=== PATIENT | female | born 1945 | race Caucasian/White ===

== ENCOUNTER 2018-06-23 | Observation (INO) | payer MEDICARE, OTHER ==
[2018-06-23] VITALS (9 sets, daily range): BP systolic 132–148; BP diastolic 61–68; PULSE 71–84; RESP 19; Ht 149.9 cm; Wt 67.4 kg
[~2018-06-23] VITALS: Ht 149.9 cm; Wt 67.4 kg
[~2018-06-23] MED LIST: CIPR500T4 PO; LEVO100T82 PO; LIRA0.6P SQ; METF500T24 PO
[2018-06-23] MEDS ORDERED: NITROGLYCERIN 2% 1 GM OINT PKT TD STA (02:51)
[2018-06-23] MEDS ORDERED: ASPIRIN 325 MG TAB PO STA (02:51)
--- NOTE | 2018-06-23 02:54 | ERD ---
ER Documentation Chief Complaint Chief Complaint chest pain x 3 days HPI This is a 73-year-old female with a history of hypertension, diabetes, high cholesterol who is here with 3 days of chest pain described as a severe deep chest pain with diaphoresis but no shortness of breath that occurs when she exerts herself. She has no prior history of cardiac disease and says this is getting worse. She has no pain currently. No prior cardiac workup. The patient is Iranian and is having this translated with her who speaks Ru ssian and Lao ROS All systems reviewed and are negative except as per history of present illness. Medications Home Meds Active Scripts Ciprofloxacin Hcl* (Ciprofloxacin Hcl*) 500 Mg Tablet, 500 MG PO BID for 7 Days, TAB Prov:GARDENIA MICHELLE MD 08/10/15 Reported Medications Levothyroxine Sodium* (Levoxyl*) 100 Mcg Tablet, 100 MCG PO BEFORE BREAKFAST, #30 TAB 08/10/15 Liraglutide (Victoza 2-Gokul) 0.6 Mg/0.1 Ml Pen.injctr, 1.2 MG SQ DAILY, SYR 08/10/15 Metformin Hcl* (Metformin Hcl*) 500 Mg Tablet, 500 MG PO TID, #30 TAB 08/10/15 Allergies Allergies: Coded Allergies: No Known Allergy (Unverified , 06/23/18) PMhx/Soc Hx Cardiac Disorders: Yes (HTN ) Hx Miscellaneous Medical Probl: Yes (DM) Hx Alcohol Use: No Hx Substance Use: No Hx Tobacco Use: No FmHx Family History: No coronary disease Physical Exam Vitals Vital Signs Date Temp Pulse Resp B/P (MAP) Pulse Ox O2 O2 Flow FiO2 Time Delivery Rate 06/23/18 74 25 159/58 99 Room Air 02:35 (91) 06/23/18 98.7 83 18 200/79 99 00:28 (119) Physical Exam Const: Well-developed, well-nourished Head: Atraumatic, normocephalic Eyes: Normal Conjunctiva, PERRLA, EOMI, normal sclera, no nystagmus ENT: Normal External Ears, Nose and Mouth, moist mucus membranes. Neck: Full range of motion. No meningismus, no lymphadenopathy. Resp: Clear to auscultation bilaterally, no wheezing, rhonchi, rales Cardio: Regular rate and rhythm, no murmurs, S1 S2 present Abd: Soft, non tender x 4, non distended. Normal bowel sounds, no guarding or rebound, no pulsitile abdominal masses or bruits Skin: No petechiae or rashes, no ecchymosis , no maculopapular rash Back: No midline or flank tenderness Ext: No cyanosis, or edema, FROM x 4, normal inspection, neurovascularly intact x 4 Neur: Awake and alert, STR 5/5 x 4, sensation intact x 4, no focal findings, cerebellum intact Psych: Normal Mood and Affect Result Diagram: 06/23/185 06/23/18254 Results 24 hrs Laboratory Tests Test 06/23/18 02:55 06/23/18 03:08 White Blood Count 8.0 10^3/ul Red Blood Count 4.89 10^6/ul Hemoglobin 14.1 g/dl Hematocrit 42.5 % Mean Corpuscular Volume 86.9 fl Mean Corpuscular Hemoglobin 28.8 pg Mean Corpuscular Hemoglobin Concent 33.2 g/dl Red Cell Distribution Width 13.8 % Platelet Count 257 10^3/UL Mean Platelet Volume 10.1 fl Immature Granulocytes % 0.500 % Neutrophils % 60.9 % Lymphocytes % 27.2 % Monocytes % 7.2 % Eosinophils % 3.6 % Basophils % 0.6 % Nucleated Red Blood Cells % 0.0 /100WBC Immature Granulocytes # 0.040 10^3/ul Neutrophils # 4.9 10^3/ul Lymphocytes # 2.2 10^3/ul Monocytes # 0.6 10^3/ul Eosinophils # 0.3 10^3/ul Basophils # 0.1 10^3/ul Nucleated Red Blood Cells # 0.0 10^3/ul Sodium Level 141 mmol/L Potassium Level 4.0 mmol/L Chloride Level 105 mmol/L Carbon Dioxide Level 27 mmol/L Anion Gap 9 Blood Urea Nitrogen 24 mg/dl Creatinine 0.64 mg/dl Est Glomerular Filtrat Rate mL/min mL/min Glucose Level 132 mg/dl Calcium Level 9.5 mg/dl Total Bilirubin 0.4 mg/dl Direct Bilirubin 0.00 mg/dl Indirect Bilirubin 0.4 mg/dl Aspartate Amino Transf (AST/SGOT) 21 IU/L Alanine Aminotransferase (ALT/SGPT) 23 IU/L Alkaline Phosphatase 90 IU/L Troponin I < 0.012 ng/ml Total Protein 7.3 g/dl Albumin 4.4 g/dl Globulin 2.90 g/dl Albumin/Globulin Ratio 1.51 Bedside Glucose 118 mg/dL Current Medications Medications Dose Sig/João Start Time Status Last (Trade) Ordered Route PRN Stop Time Admin Dose Reason Admin Aspirin 325 mg ONCE STAT 06/23/18 DC 06/23/18 (Aspirin) PO 02:51 03:09 06/23/18 02:52 1 inch ONCE STAT 06/23/18 DC 06/23/18 Nitroglycerin TD 02:51 03:09 06/23/18 02:52 (Nitroglyceri n 2% Oint) Procedures/MDM EKG: Rate/Rhythm: Normal Sinus Rhythm,NL intervals QRS, ST, QT: NORMAL TX, QRS, QT] Impression: NORMAL EKG Cardiac Admit MDM: Patient's symptoms are concerning for cardiac cause will require inpatient workup and continuous monitoring. Further w/u for ischemia, arrhythmia, PE or dissection will be deferred to the inpatient team. Departure Diagnosis: Primary Impression: Chest pain Chest pain type: unspecified Qualified Codes: R07.9 - Chest pain, unspecified Condition: Stable MICHELLE FONTANA DO Jun 23, 2018 02:53
[2018-06-23] MEDS ORDERED: ACETAMINOPHEN 325 MG TAB PO PRN ×2 (04:30→07:00)
[2018-06-23] MEDS ORDERED: ONDANSETRON 4 MG INJ IV PRN ×2 (04:30→07:00)
[2018-06-23] MEDS ORDERED: LEVO75TA5 PO (05:43)
[2018-06-23] MEDS ORDERED: PANT40TA4 PO (05:43)
[2018-06-23] MEDS ORDERED: GLIM4TAB PO (05:43)
[2018-06-23] MEDS ORDERED: INSU100I31 SQ (05:43)
[2018-06-23] MEDS ORDERED: LIRA0.6P2 SQ (05:43)
[2018-06-23] MEDS ORDERED: IRBE1TAB33 PO (05:43)
[2018-06-23] MEDS ORDERED: OLOP2.5D5 OP (05:43)
--- NOTE | 2018-06-23 06:56 | HP ---
Date/Time of Note Date/Time of Note DATE: 06/23/18 TIME: 06:53 Assessment/Plan VTE Prophylaxis Pharmacological prophylaxis: heparin Lines/Catheters IV Catheter Type (from Nrsg): Saline Lock Assessment/Plan Assessment/Plan 1. Chest pain: Rule out ACS -Telemetry monitoring -Supplemental oxygen, aspirin, statin. Continue ARB. As needed nitro and morp johnson -Trend troponin -Manage BP -2D echo and cardiology consult -Check A1c, fasting lipid and TSH in a.m. 2. Hypertensive urgency: BP better controlled -Adjust antihypertensives as needed 3. Diabetes, insulin-dependent -Check A1c -Hold sulfonylurea. Continue insulin. Adjust as needed 4. Hypothyroidism: Check TSH -Continue Synthroid Result Diagram: 06/23/18 0255 06/23/18 0255 Results 24hrs Laboratory Tests Test 06/23/18 02:55 06/23/18 03:08 White Blood Count 8.0 Red Blood Count 4.89 Hemoglobin 14.1 Hematocrit 42.5 Mean Corpuscular Volume 86.9 Mean Corpuscular Hemoglobin 28.8 L Mean Corpuscular Hemoglobin Concent 33.2 Red Cell Distribution Width 13.8 Platelet Count 257 Mean Platelet Volume 10.1 Immature Granulocytes % 0.500 H Neutrophils % 60.9 Lymphocytes % 27.2 Monocytes % 7.2 Eosinophils % 3.6 Basophils % 0.6 Nucleated Red Blood Cells % 0.0 Immature Granulocytes # 0.040 H Neutrophils # 4.9 Lymphocytes # 2.2 Monocytes # 0.6 Eosinophils # 0.3 Basophils # 0.1 Nucleated Red Blood Cells # 0.0 Sodium Level 141 Potassium Level 4.0 Chloride Level 105 Carbon Dioxide Level 27 Anion Gap 9 Blood Urea Nitrogen 24 H Creatinine 0.64 Est Glomerular Filtrat Rate mL/min Glucose Level 132 Calcium Level 9.5 Total Bilirubin 0.4 Direct Bilirubin 0.00 Indirect Bilirubin 0.4 Aspartate Amino Transf (AST/SGOT) 21 Alanine Aminotransferase (ALT/SGPT) 23 Alkaline Phosphatase 90 Troponin I < 0.012 Total Protein 7.3 Albumin 4.4 Globulin 2.90 Albumin/Globulin Ratio 1.51 Bedside Glucose 118 HPI/ROS Admit Date/Time Admit Date/Time Jun 23, 2018 at 04:25 Hx of Present Illness This is a 73-year-old female with a history of hypertension, diabetes, hyp othyroidism who presents the ER complaining of chest pain. Pain is been going on for 3 days. She reported associated shortness of breath occasionally and also diaphoresis. When she presented to ER, blood pressure was 200/79. EKG without ST-T wave abnormalities in the first troponin negative. Chest x-ray without acute findings. PMH/Family/Social Past Medical History Past Surgical History Past Surgical Hx: other (see hpi) Family History Significant Family History: no pertinent family hx Social History Alcohol Use: other Smoking Status: Unknown if ever smoked Drug Use: other Exam Constitutional: other (no acute distress) Eyes: PERRL ENMT: nl external ears & nose Neck: supple Respiratory: normal air movement Cardiovascular: nl pulses Gastrointestinal: soft Extremities: normal pulses Medications Current Medications Ondansetron HCl (Zofran Inj) 4 mg ER BRIDGE PRN IV NAUSEA/VOMITING; Start 06/23/18 at 04:30; Stop 06/24/18 at 04:29 Acetaminophen (Tylenol Tab) 650 mg ER BRIDGE PRN PO .MILD PAIN 1-3 OR TEMP; Start 06/23/18 at 04:30; Stop 06/24/18 at 04:29 Coded Allergies: No Known Allergy (Unverified , 06/23/18) Social History Smoking Status: Never smoker Exam/Review of Systems Vital Signs Vitals Vital Signs Date Temp Pulse Resp B/P (MAP) Pulse Ox O2 O2 Flow FiO2 Time Delivery Rate 06/23/18 71 05:41 06/23/18 23 129/57 99 Room Air 05:23 (81) 06/23/18 98.7 00:28 AYESHA QUINN MD Jun 23, 2018 06:56
[2018-06-23] MEDS ORDERED: NITROGLYCERIN (SL) 0.4 MG TAB SL PRN (07:00)
[2018-06-23] MEDS ORDERED: NACL 0.9% 3 ML SYG IV SCH (07:00)
[2018-06-23] MEDS ORDERED: ALBUTEROL/IPRATROPIUM (NEB) 3 ML AMP HHN PRN (07:00)
[2018-06-23] MEDS: [UNRECOGNIZED DRUG - REMARK] XX SCH ×3 (08:00→23:17)
[2018-06-23] MEDS ORDERED: INSULIN DEGLUDEC 10 UNIT SQ SCH (09:00)
[2018-06-23] MEDS ORDERED: LIRAGLUTIDE 0.6 MG SQ SCH (09:00)
[2018-06-23] MEDS: LOSARTAN 50 MG TAB PO SCH (10:05)
[2018-06-23] MEDS: HYDROCHLOROTHIAZIDE 12.5 MG CAP PO SCH (10:05)
[2018-06-23] MEDS: HEPARIN 5,000 UNIT/1 ML VIAL SC SCH ×2 (10:05→20:53)
[2018-06-23] MEDS: PANTOPRAZOLE (EC) 40 MG TAB PO SCH (10:05)
[2018-06-23] MEDS: metFORMIN 500 MG TAB PO SCH ×3 (10:05→17:47)
[2018-06-23] MEDS: LEVOTHYROXINE 75 MCG TAB PO SCH (10:05)
--- NOTE | 2018-06-23 14:14 | PN ---
Date/Time of Note Date/Time of Note DATE: 06/23/18 TIME: 14:07 Assessment/Plan VTE Prophylaxis Pharmacological prophylaxis: heparin Lines/Catheters IV Catheter Type (from Nrsg): Saline Lock Assessment/Plan Assessment/Plan 1. Chest pain, negative troponin, follow up with echo and cardiology consultation 2. Hypertension, controlled 3. Diabetes, insulin-dependent, on metformin, victoza and insulin 4. Hypothyroidism, on Synthroid 5. DVT prophylaxsi: heparin SQ Result Diagram: 06/23/18 0255 06/23/18 0255 Results 24hrs Laboratory Tests Test 06/23/18 02:55 06/23/18 03:08 06/23/18 07:23 06/23/18 08:15 White Blood Count 8.0 Red Blood Count 4.89 Hemoglobin 14.1 Hematocrit 42.5 Mean Corpuscular 86.9 Volume Mean Corpuscular 28.8 L Hemoglobin Mean Corpuscular 33.2 Hemoglobin Concent Red Cell 13.8 Distribution Width Platelet Count 257 Mean Platelet Volume 10.1 Immature 0.500 H Granulocytes % Neutrophils % 60.9 Lymphocytes % 27.2 Monocytes % 7.2 Eosinophils % 3.6 Basophils % 0.6 Nucleated Red Blood 0.0 Cells % Immature 0.040 H Granulocytes # Neutrophils # 4.9 Lymphocytes # 2.2 Monocytes # 0.6 Eosinophils # 0.3 Basophils # 0.1 Nucleated Red Blood 0.0 Cells # Sodium Level 141 Potassium Level 4.0 Chloride Level 105 Carbon Dioxide Level 27 Anion Gap 9 Blood Urea Nitrogen 24 H Creatinine 0.64 Est Glomerular Filtrat Rate mL/min Glucose Level 132 Calcium Level 9.5 Total Bilirubin 0.4 Direct Bilirubin 0.00 Indirect Bilirubin 0.4 Aspartate Amino 21 Transf (AST/SGOT) Alanine 23 Aminotransferase (AL T/SGPT) Alkaline Phosphatase 90 Troponin I < 0.012 < 0.012 Total Protein 7.3 Albumin 4.4 Globulin 2.90 Albumin/Globulin 1.51 Ratio Bedside Glucose 118 158 Creatine Kinase 51 Creatine Kinase 2.5 Index Creatinine Kinase MB 1.26 (Mass) Test 06/23/18 12:59 Creatine Kinase 42 Creatine Kinase Pending Index Creatinine Kinase MB Pending (Mass) Troponin I < 0.012 Subjective 24 Hr Interval Summary Free Text/Dictation no chest pain now, no shortness of breath Exam/Review of Systems Exam Vitals Vital Signs Date Temp Pulse Resp B/P (MAP) Pulse Ox O2 O2 Flow FiO2 Time Delivery Rate 06/23/18 84 12:05 06/23/18 98.0 19 132/61 94 11:12 (84) 06/23/18 Room Air 05:23 Constitutional: alert, oriented, well developed Psych: no complaints, nl mood/affect Head: normocephalic, atraumatic Eyes: nl conjunctiva, EOMI, nl lids ENMT: nl external ears & nose, nl lips & teeth, nl nasal mucosa & septum Neck: supple, non-tender Respiratory: clear to auscultation, normal air movement; No congested cough, No crackles/rales, No diminished breath sounds, No intercostal retraction, No labored breathing, No respirations, No tactile fremitus, No wheezing, No other Cardiovascular: regular rate and rhythm, nl pulses; No bruits, No diastolic murmur, No edema, No gallop, No irregular rhythm, No jugular venous distention (JVD), No murmurs/extra sounds, No rub, No systolic murmur, No S3, No S4, No other Gastrointestinal: soft, nl liver, spleen, non-tender Musculoskeletal: nl extremities to inspection Extremities: normal pulses; No calf tenderness, No cyanosis, No clubbing, No edema, No pitting pedal edema, No palpable cord, No tenderness, No other Neurological: DISTANCE LEARNING PROGRAM COORDINATOR II-XII intact, nl mental status, nl speech, nl strength Skin: nl turgor Lymph: nl lymph nodes Results Results 24hrs Laboratory Tests Test 06/23/18 02:55 06/23/18 03:08 06/23/18 07:23 06/23/18 08:15 White Blood Count 8.0 Red Blood Count 4.89 Hemoglobin 14.1 Hematocrit 42.5 Mean Corpuscular 86.9 Volume Mean Corpuscular 28.8 L Hemoglobin Mean Corpuscular 33.2 Hemoglobin Concent Red Cell 13.8 Distribution Width Platelet Count 257 Mean Platelet Volume 10.1 Immature 0.500 H Granulocytes % Neutrophils % 60.9 Lymphocytes % 27.2 Monocytes % 7.2 Eosinophils % 3.6 Basophils % 0.6 Nucleated Red Blood 0.0 Cells % Immature 0.040 H Granulocytes # Neutrophils # 4.9 Lymphocytes # 2.2 Monocytes # 0.6 Eosinophils # 0.3 Basophils # 0.1 Nucleated Red Blood 0.0 Cells # Sodium Level 141 Potassium Level 4.0 Chloride Level 105 Carbon Dioxide Level 27 Anion Gap 9 Blood Urea Nitrogen 24 H Creatinine 0.64 Est Glomerular Filtrat Rate mL/min Glucose Level 132 Calcium Level 9.5 Total Bilirubin 0.4 Direct Bilirubin 0.00 Indirect Bilirubin 0.4 Aspartate Amino 21 Transf (AST/SGOT) Alanine 23 Aminotransferase (AL T/SGPT) Alkaline Phosphatase 90 Troponin I < 0.012 < 0.012 Total Protein 7.3 Albumin 4.4 Globulin 2.90 Albumin/Globulin 1.51 Ratio Bedside Glucose 118 158 Creatine Kinase 51 Creatine Kinase 2.5 Index Creatinine Kinase MB 1.26 (Mass) Test 06/23/18 12:59 Creatine Kinase 42 Creatine Kinase Pending Index Creatinine Kinase MB Pending (Mass) Troponin I < 0.012 Medications Medication Current Medications IV Flush (NS 3 ml) 3 ml PER PROTOCOL IV ; Start 06/23/18 at 07:00 Ondansetron HCl (Zofran Inj) 4 mg Q6H PRN IV NAUSEA/VOMITING; Start 06/23/18 at 07:00 Nitroglycerin (Nitroglycerin (Sl Tab) 0.4 Mg) 1 tab Q5M PRN SL .CHEST PAIN; Start 06/23/18 at 07:00 Acetaminophen (Tylenol Tab) 650 mg Q6H PRN PO .PAIN 1-3 OR TEMP; Start 06/23/18 at 07:00 Heparin Sodium (Porcine) (Heparin (5000 Units/1ml)) 5,000 unit Q12 SC Last administered on 06/23/18 10:05; Admin Dose 5,000 UNIT; Start 06/23/18 at 09:00 Albuterol/ Ipratropium (Duoneb) 3 ml Q2H RESP THERAPY PRN HHN SHORTNESS OF BREATH; Start 06/23/18 at 07:00 Levothyroxine Sodium (Synthroid) 75 mcg BEFORE BREAKFAST PO Last administered on 06/23/18 10:05; Admin Dose 75 MCG; Start 06/23/18 at 07:00 Metformin HCl (Glucophage) 500 mg WITH MEALS PO Last administered on 06/23/18 10:05; Admin Dose 500 MG; Start 06/23/18 at 08:00 Pantoprazole (Protonix Tab) 40 mg DAILY PO Last administered on 3/15/19at 10:05; Admin Dose 40 MG; Start 06/23/18 at 09:00 Miscellaneous Information 10 unit QAM SQ ; Start 06/23/18 at 09:00; Status UNV Losartan Potassium (Cozaar) 50 mg DAILY PO Last administered on 06/23/18at 10:05; Admin Dose 50 MG; Start 06/23/18 at 09:00 Miscellaneous Information 0.6 mg DAILY SQ ; Start 06/23/18 at 09:00; Status UNV Olopatadine HCl (Patanol 0.1% Oph) 1 drop QAM BOTH EYES ; Start 06/23/18 at 09:00 Hydrochlorothiazide (Hydrochlorothiazide) 12.5 mg DAILY PO Last administered on 06/23/18at 10:05; Admin Dose 12.5 MG; Start 06/23/18 at 09:00 Miscellaneous Information (*Order Clarification Bulletin) MEDICATION REQUIRES CLARIFICATI... Q8H XX ; Start 06/23/18 at 08:00 PAWEL CORDOBA MD Jun 23, 2018 14:14
[2018-06-23] MEDS: OLOPATADINE 0.1% 5 ML OPH BOTH EYES SCH (14:24)
--- NOTE | 2018-06-23 17:25 | RADRPT ---
Echocardiogram Report Patient Name: MARIANO HOGANPatient ID: [id number] : 1945 (73y 1m)Study Date: 06/23/2018 8:26:45 AM Gender: FAccession #: [id number] Tech: Carmelo Blevins [facility] Location: [address] Ref.Physician: AYESHA QUINN Height(Cm): BSA: Weight(Kg): Quality: AdequateAccount #: Procedures: Echocardiographic Report: Transthoracic echocardiogram with complete 2D, M-Mode, and doppler examination. Indications: Chest Pain. Measurements: 2D/M Mode Doppler Measurement Value Normal Range Measurement Value Normal Range LVIDd 2D 3.7 [ 3.8 - 5.2 ] cm AV Peak Tyree 1.5 [ 100.0 - 170.0 ] cm/sec LVIDs 2D 2.4 [ 2.2 - 3.5 ] cm AV Peak PG 9.0 [ 2.0 - 9.0 ] mmHg LVPWd 2D 0.8 [ 0.6 - 0.9 ] cm LVOT Peak Tyree 1.1 [ 70.0 - 110.0 ] cm/sec IVSd 2D 1.1 [ 0.6 - 0.9 ] cm LVOT Peak PG 5.0 [ 2.0 - 6.0 ] mmHg AoR Diam 2D 2.7 [ 2.3 - 3.1 ] cm MV E Peak Tyree 0.8 [ 60.0 - 130.0 ] cm/sec EDV 2D 58.5 [ 46.0 - 106.0 ] ml MV A Peak Tyree 1.1 [ 100.0 - 120.0 ] cm/sec ESV 2D 21.0 [ 14.0 - 42.0 ] ml MV E/A 0.7 [ 0.8 - 1.5 ] ratio EF 2D 64.1 [ 54.0 - 74.0 ] percent MV Decel Time 254 [ 104 - 258 ] msec LA Dimen 2D 3.0 [ 2.7 - 3.8 ] cm Lat E` Tyree 0.1 [ 10.0 - 15.0 ] cm/sec Lateral E/E` 11.1 [ 1.0 - 2.0 ] ratio MV E/A 0.7 [ 0.8 - 1.5 ] ratio TR Peak Tyree 2.7 [ 100.0 - 280.0 ] cm/sec TR Peak PG 29.0 mmHg RVSP 32.0 [ 10.0 - 36.0 ] mmHg Findings: Left Ventricle: Normal left ventricular systolic function. Normal left ventricular cavity size. Sigmoid septum. Ejection fraction is visually estimated at 60 %. Tissue Doppler/Mitral Doppler indices are consistent with impaired relaxation (Stage I diastolic dysfunction). Right Ventricle: Normal right ventricular size. Normal right ventricular systolic function. Left Atrium: The left atrium is normal in size. Right Atrium: The right atrium is normal in size. Mitral Valve: Mild mitral leaflet calcification. Mild mitral annular calcification. Trace mitral regurgitation. Aortic Valve: No significant aortic stenosis or insufficiency. Aortic cusps appear mildly calcified. Mild to moderate aortic valve regurgitation. Tricuspid Valve: Normal appearance of the tricuspid valve. Estimated peak PA systolic pressure 32 mmHg. There is mild tricuspid regurgitation. Pulmonic Valve: Pulmonic valve not well visualized. Pericardium: Normal pericardium with no significant pericardial effusion. Left pleural effusion seen. Aorta: Normal aortic root. IVC: Normal size and normal respiratory collapse consistent with normal right atrial pressure. Conclusions: Normal left ventricular systolic function. Normal left ventricular cavity size. Sigmoid septum. Ejection fraction is visually estimated at 60 %. Tissue Doppler/Mitral Doppler indices are consistent with impaired relaxation (Stage I diastolic dysfunction). No significant aortic stenosis or insufficiency. Aortic cusps appear mildly calcified. Mild to moderate aortic valve regurgitation. Electronically Signed By: Gwyn Villeda 2018-06-23 17:24:45 PDT
[2018-06-24] VITALS (9 sets, daily range): BP systolic 136–148; BP diastolic 60–64; PULSE 69–87; RESP 19–20
[2018-06-24] MEDS: LEVOTHYROXINE 75 MCG TAB PO SCH (06:16)
[2018-06-24] MEDS: [UNRECOGNIZED DRUG - REMARK] XX SCH ×2 (08:00→16:00)
[2018-06-24] MEDS: OLOPATADINE 0.1% 5 ML OPH BOTH EYES SCH (08:16)
[2018-06-24] MEDS: HYDROCHLOROTHIAZIDE 12.5 MG CAP PO SCH (08:17)
[2018-06-24] MEDS: LOSARTAN 50 MG TAB PO SCH (08:17)
[2018-06-24] MEDS: PANTOPRAZOLE (EC) 40 MG TAB PO SCH (08:17)
[2018-06-24] MEDS: metFORMIN 500 MG TAB PO SCH ×3 (08:17→17:27)
[2018-06-24] MEDS: HEPARIN 5,000 UNIT/1 ML VIAL SC SCH (08:19)
--- NOTE | 2018-06-24 16:52 | DS ---
Date/Time of Note Date/Time of Note DATE: 06/24/18 TIME: 16:48 Discharge Summary Admission/Discharge Info Admit Date/Time Jun 23, 2018 at 04:25 Discharge Date/Time Patient Condition: Stable Procedures CXR IMPRESSION: 1. No radiographic evidence for acute cardiopulmonary disease 2. Mild cardiomegaly and atherosclerotic vascular disease 3. Postsurgical changes in the left base of neck 2D echo Conclusions: Normal left ventricular systolic function. Normal left ventricular cavity size. Sigmoid septum. Ejection fraction is visually estimated at 60 %. Tissue Doppler/Mitral Doppler indices are consistent with impaired relaxation (Stage I diastolic dysfunction). No significant aortic stenosis or insufficiency. Aortic cusps appear mildly calcified. Mild to moderate aortic valve regurgitation. Hx of Present Illness 73-year-old admitted female admitted with burning epigastric pain. Hospital Course Hospitalist coverage/hospital course Admitted with burning epigastric pain. No known aggravating or relieving factors. No nausea vomiting fever. No diaphoresis syncope. No cough no wheezing travel. Patient is adherent to her medications. In the ER blood pressure was over 200 possibly due to pain. Although may need medications titrated down the line. Pressures were checked bilaterally and there is no significant Stef. She was ruled out for ACS by enzymes EKG symptoms. LFTs okay. Hemoglobin okay. Chest x-ray does not show any acute process. Patient stable for for discharge on conservative management. I will add Pepcid and asked her to change her diet to avoid may be spicy or citrus foods. Patient is recommended to follow-up with primary if symptoms return may need cardiology referral/stress test. Atypical chest pain Hypertension Type 2 diabetes Metabolic syndrome Hypothyroidism Aortic regurgitation: Mild Home Meds Reported Medications Pantoprazole* (Pantoprazole*) 40 Mg Tablet.dr, 40 MG PO DAILY for 30 Days, #30 06/23/18 Insulin Degludec (Tresiba Flextouch U-100) 100 Unit/1 Ml Insuln.pen, 10 UNIT SQ QAM 06/23/18 Olopatadine HCl (Pazeo) 2.5 Ml Drops, 2.5 ML OP QAM, BOTTLE 06/23/18 Irbesartan-Hydrochlorothiazide (Irbesartan-Hydrochlorothiazide) 150-12.5 Mg Tab, 1 TAB PO DAILY, TAB 06/23/18 Liraglutide (Victoza 3-Gokul) 0.6 Mg/0.1 Ml Pen.injctr, 0.6 MG SQ DAILY, SYR 06/23/18 Glimepiride* (Glimepiride*) 4 Mg Tablet, 4 MG PO BID for 30 Days, #60 06/23/18 Levothyroxine Sodium* (Levothyroxine Sodium*) 75 Mcg Tablet, 75 MCG PO BEFORE BREAKFAST, #30 TAB 06/23/18 Liraglutide (Victoza 2-Gokul) 0.6 Mg/0.1 Ml Pen.injctr, 1.2 MG SQ DAILY, SYR 08/10/15 Metformin Hcl* (Metformin Hcl*) 500 Mg Tablet, 500 MG PO TID, #30 TAB 08/10/15 Discontinued Reported Medications Levothyroxine Sodium* (Levoxyl*) 100 Mcg Tablet, 100 MCG PO BEFORE BREAKFAST, #30 TAB 08/10/15 Discontinued Scripts Ciprofloxacin Hcl* (Ciprofloxacin Hcl*) 500 Mg Tablet, 500 MG PO BID for 7 Days, TAB Prov:GARDENIA MICHELLE MD 08/10/15 Primary Care Provider Not On Staff Doctor Time spent on discharge: > 30 minutes Pending Labs Laboratory Tests Test 06/23/18 17:45 06/24/18 05:06 06/24/18 08:23 06/24/18 11:10 Bedside 151 210 179 Glucose mg/dL (70-220) mg/dL (70-220) mg/dL (70-220) White Blood 6.9 Count 10^3/ul (4.8-1 0.8) Red Blood 4.69 Count 10^6/ul (4.20- 5.40) Hemoglobin 13.6 g/dl (12.0-16. 0) Hematocrit 41.2 % (37.0-47.0) Mean 87.8 Corpuscular fl (82.0-101.0 Volume ) Mean 29.0 Corpuscular pg (29.0-33.0) Hemoglobin Mean 33.0 Corpuscular g/dl (32.0-37. Hemoglobin Conc 0) ent Red Cell 13.8 Distribution % (11.5-14.5) Width Platelet Count 243 10^3/UL (140-4 15) Mean Platelet 10.6 Volume fl (7.4-10.4) Immature 0.400 Granulocytes % % (0.001-0.429 ) Neutrophils % 57.7 % (39.0-77.0) Lymphocytes % 31.0 % (15.0-51.0) Monocytes % 6.8 % (0.0-11.0) Eosinophils % 3.5 % (0.0-7.0) Basophils % 0.6 % (0.0-2.0) Nucleated Red 0.0 Blood Cells % /100WBC (0.0-0 .0) Immature 0.030 Granulocytes # 10^3/ul (0.0-0 .031) Neutrophils # 4.0 10^3/ul (1.6-7 .5) Lymphocytes # 2.1 10^3/ul (0.8-2 .9) Monocytes # 0.5 10^3/ul (0.3-0 .9) Eosinophils # 0.2 10^3/ul (0.0-0 .5) Basophils # 0.0 10^3/ul (0.0-0 .1) Nucleated Red 0.0 Blood Cells # 10^3/ul (0.0-0 .0) Sodium Level 136 mmol/L (135-14 4) Potassium 4.2 Level mmol/L (3.5-5. 1) Chloride Level 102 mmol/L (97-110 ) Carbon Dioxide 25 Level mmol/L (21-31) Anion Gap 9 (5-13) Blood Urea 25 Nitrogen mg/dl (7-20) Creatinine 0.70 mg/dl (0.44-1. 00) Est Glomerular mL/min (>60) Filtrat Rate mL/min Glucose Level 210 mg/dl (70-220) Hemoglobin A1c 7.6 % (0-5.9) Calcium Level 9.4 mg/dl (8.4-10. 2) Magnesium 1.7 Level mg/dl (1.7-2.5 ) Total 0.5 Bilirubin mg/dl (0.2-1.3 ) Direct 0.00 Bilirubin mg/dl (0.00-0. 20) Indirect 0.5 Bilirubin mg/dl (0-1.1) Aspartate Amino 18 Transf (AST/SGO IU/L (15-46) T) Alanine 22 Aminotransferas IU/L (13-69) e (ALT/SGPT) Alkaline 74 Phosphatase IU/L (42-121) Total Protein 6.2 g/dl (6.1-8.1) Albumin 3.9 g/dl (3.3-4.9) Globulin 2.30 g/dl (1.3-3.2) Albumin/Globuli 1.69 n Ratio Triglycerides 175 Level mg/dl (0-149) Cholesterol 171 Level mg/dl (100-200 ) LDL 85 mg/dl Cholesterol, Calculated HDL 51 Cholesterol mg/dl (33-92) Cholesterol/HDL 3.3 RATIO Ratio Thyroid 0.575 Stimulating MIU/L (0.465-4 Hormone (TSH) .680) HARI AVERY MD Jun 24, 2018 16:52
--- NOTE | 2018-06-24 16:53 | PDOCDIS ---
Discharge Instructions CONDITION [id number] Patient Condition: [id number] Stable HOME CARE INSTRUCTIONS: [id number] Diet Instructions: [id number] Reduced Calorie (1800 ada) ACTIVITY: [id number] Activity Restrictions: [id number] Slowly Increase Activity Rest between Activity Do not Drive Avoid Heavy Housework [id number] Activity Restrictions Comment: [id number] Heavy lifting 2 weeks FOLLOW UP/APPOINTMENTS Follow-up Plan Appointment primary 1 week. Asked him to call here/ medical records for a copy of discharge summary. HARI AVERY MD Jun 24, 2018 16:52
[2018-06-24] MEDS ORDERED: ACET325T33 PO (16:57)
[2018-06-24] MEDS ORDERED: ASPI-535 PO (16:57)
[2018-06-24] MEDS ORDERED: UDMYL PO (16:57)
== END 2018-06-24 17:25 | disposition home or self-care (01) ==
LOC: E/R → 6WM 04:25
PROVIDERS: ADMIT Internal Medicine; ATTEND Internal Medicine
DX: R07.89 Other chest pain (principal); I16.0 Hypertensive urgency; I10 Essential (primary) hypertension; E11.9 Type 2 diabetes mellitus without complications; E78.00 Pure hypercholesterolemia, unspecified; E03.9 Hypothyroidism, unspecified; I35.1 Nonrheumatic aortic (valve) insufficiency; E88.81 Metabolic syndrome and other insulin resistance; Z79.4 Long term (current) use of insulin
CPT/HCPCS: 36415; 71045; 80053; 80061; 82550; 82553; 82962; 83036; 83735; 84443; 84484; 85025; 93005; 93306; 99285; G0378; J1644

== ENCOUNTER 2018-08-08 16:04 | Inpatient (IN) | payer MEDICARE, OTHER ==
[~2018-08-08] VITALS: Ht 154.9 cm; Wt 77.3 kg
[~2018-08-08 16:04] MED LIST changes: +ACET325T33 PO; +ASPI-535 PO; -CIPR500T4 PO; +GLIM4TAB PO; +INSU100I31 SQ; +IRBE1TAB33 PO; -LEVO100T82 PO; +LEVO75TA5 PO; +LIRA0.6P2 SQ; +OLOP2.5D5 OP; +PANT40TA4 PO; +UDMYL PO
[2018-08-08] MEDS ORDERED: ACETAMINOPHEN 325 MG TAB PO STA (16:32)
[2018-08-08] MEDS ORDERED: CEFTRIAXONE 1 GM/50 ML (PMX) 50 ML IVPB STA (16:32)
[2018-08-08] MEDS ORDERED: SODIUM CHLORIDE 0.9% 1L BAG IV* STA (16:32)
[2018-08-08] MEDS ORDERED: LEVO75TA5 PO (17:09)
[2018-08-08] MEDS ORDERED: ASPI-817 PO (17:09)
[2018-08-08] MEDS ORDERED: LIRA0.6P2 SQ (17:09)
[2018-08-08] MEDS ORDERED: LEVO500T10 PO (17:10)
[2018-08-08] MEDS ORDERED: ONDANSETRON 4 MG INJ IV PRN (17:30)
[2018-08-08] MEDS ORDERED: ACETAMINOPHEN 325 MG TAB PO PRN (17:30)
--- NOTE | 2018-08-08 18:51 | HP ---
Date/Time of Note Date/Time of Note DATE: 08/08/18 TIME: 18:49 Assessment/Plan VTE Prophylaxis Pharmacological prophylaxis: heparin Lines/Catheters IV Catheter Type (from Nrs): Saline Lock Assessment/Plan Hospital Course 73-year-old female with a history of diabetes and recurrent UTIs who presents with cystitis -Given frequent recurrences we will treat with IV antibiotics and await urine culture -We will also pursue ultrasound of kidneys and bladder to rule out anatomic cause Diabetes: -Basal bolus insulin Result Diagram: 08/08/18 1640 08/08/18 1640 Results 24hrs Laboratory Tests Test 08/08/18 16:40 08/08/18 16:42 08/08/18 17:00 White Blood Count 11.3 #H Red Blood Count 4.75 Hemoglobin 13.7 Hematocrit 41.6 Mean Corpuscular Volume 87.6 Mean Corpuscular Hemoglobin 28.8 L Mean Corpuscular Hemoglobin Concent 32.9 Red Cell Distribution Width 13.5 Platelet Count 201 Mean Platelet Volume 10.3 Immature Granulocytes % 0.500 H Neutrophils % 88.7 H Lymphocytes % 4.2 L Monocytes % 5.6 Eosinophils % 0.7 Basophils % 0.3 Nucleated Red Blood Cells % 0.0 Immature Granulocytes # 0.060 H Neutrophils # 10.0 H Lymphocytes # 0.5 L Monocytes # 0.6 Eosinophils # 0.1 Basophils # 0.0 Nucleated Red Blood Cells # 0.0 Prothrombin Time 12.6 Prothrombin Time Ratio 1.0 INR International Normalized Ratio 0.93 Activated Partial Thromboplast Time 26.6 Sodium Level 139 Potassium Level 4.1 Chloride Level 104 Carbon Dioxide Level 24 Anion Gap 11 Blood Urea Nitrogen 22 H Creatinine 0.69 Est Glomerular Filtrat Rate mL/min Glucose Level 277 H Calcium Level 9.4 Total Bilirubin 0.6 Direct Bilirubin 0.00 Indirect Bilirubin 0.6 Aspartate Amino Transf (AST/SGOT) 18 Alanine Aminotransferase (ALT/SGPT) 19 Alkaline Phosphatase 90 Troponin I < 0.012 Total Protein 6.9 Albumin 4.3 Globulin 2.60 Albumin/Globulin Ratio 1.65 POC Venous Lactate 1.4 Urine Color YELLOW Urine Clarity CLOUDY A Urine pH 6.0 Urine Specific [place] 1.012 Urine Ketones TRACE A Urine Nitrite NEGATIVE Urine Bilirubin NEGATIVE Urine Urobilinogen NEGATIVE Urine Leukocyte Esterase 3+ H Urine Microscopic RBC 27 H Urine Microscopic WBC > 182 H Urine Bacteria FEW A Urine Hemoglobin 2+ H Urine Glucose 3+ H Urine Total Protein 1+ H HPI/ROS Admit Date/Time Admit Date/Time Hx of Present Illness This is a 73-year-old female with a history of diabetes, recurrent UTIs who presents complaining of "cystitis " Patient seems to have suffered from frequent recurrent UTIs over the last couple years. She says in her [place] she underwent some sort of surgical procedure for a kidney infection she says. Over the past few days she has developed worsening bladder pain with urinary frequency and urgency and incomplete emptying. Severe pain. She denies any systemic symptoms from this she. She presents for evaluation of which she calls cystitis ROS Constitutional: no complaints, improved Eyes: no complaints ENT: no complaints Respiratory: no complaints Cardiovascular: no complaints Gastrointestinal: no complaints Genitourinary: no complaints Musculoskeletal: no complaints Skin: no complaints Neurologic: no complaints Endocrine: no complaints Lymphatic: no complaints Psychological: no complaints, nl mood/affect Immunologic: no complaints PMH/Family/Social Past Medical History cytitis diabetes Medications Current Medications Ondansetron HCl (Zofran Inj) 4 mg BRIDGE ORDER PRN IV NAUSEA/VOMITING; Start 08/08/18 at 17:30; Stop 08/09/18 at 17:29 Acetaminophen (Tylenol Tab) 650 mg ER BRIDGE PRN PO .MILD PAIN 1-3 OR TEMP; Start 08/08/18 at 17:30; Stop 08/09/18 at 17:29 Coded Allergies: No Known Allergy (Unverified , 08/08/18) Past Surgical History Past Surgical Hx: no surgical history Family History Significant Family History: no pertinent family hx Social History Alcohol Use: none Smoking Status: Never smoker Drug Use: none Exam/Review of Systems Vital Signs Vitals Vital Signs Date Temp Pulse Resp B/P (MAP) Pulse Ox O2 O2 Flow FiO2 Time Delivery Rate 08/08/18 38.7 16:59 08/08/18 98 18 166/88 100 Room Air 16:47 (114) Exam Constitutional: alert, oriented, well developed Psych: no complaints, nl mood/affect Head: normocephalic, atraumatic Eyes: nl conjunctiva, EOMI, nl lids, nl sclera, PERRL ENMT: nl external ears & nose, nl lips & teeth, nl nasal mucosa & septum Neck: supple, non-tender Respiratory: clear to auscultation, normal air movement Cardiovascular: regular rate and rhythm, nl pulses Gastrointestinal: soft, nl liver, spleen, non-tender Musculoskeletal: nl extremities to inspection Extremities: normal pulses Neurological: PROVIDER EDUCATION SPECIALIST II-XII intact, nl mental status, nl speech, nl strength Skin: nl turgor; No rash or lesions Lymph: nl lymph nodes PATRICIA TUCKER MD Aug 08, 2018 18:51
[2018-08-08] MEDS ORDERED: morphine 2 MG INJ IV PRN (19:00)
[2018-08-08] MEDS ORDERED: NACL 0.9% 3 ML SYG IV SCH (19:00)
--- NOTE | 2018-08-08 19:03 | ERD ---
ER Documentation Chief Complaint Chief Complaint pt taking abx for cystitis ap 6 vomit and fever HPI Patient is a 73-year-old female with diabetes who presents with a urine infection. The patient was started on Levaquin today and took the first dose but then developed fevers and was having vomiting. She is shaking all over. S he does have pain with urination. Upon review of old medical records this is the patient's first visit to the ER since 2015. She does have a primary doctor. ROS All systems reviewed and are negative except as per history of present illness. Medications Home Meds Reported Medications Levofloxacin* (Levofloxacin*) 500 Mg Tablet, 500 MG PO DAILY, TAB FOR 5 DAYS, START DATE 08/08/18 08/08/18 Levothyroxine Sodium* (Levothyroxine Sodium*) 75 Mcg Tablet, 75 MCG PO BEFORE BREAKFAST, #30 TAB 08/08/18 Liraglutide (Victoza 3-Gokul) 0.6 Mg/0.1 Ml Pen.injctr, 1.8 MG SQ DAILY, SYR 08/08/18 Aspirin* (Aspirin* EC) 81 Mg Tablet.dr, 81 MG PO NEEDED, TAB 08/08/18 Pantoprazole* (Pantoprazole*) 40 Mg Tablet.dr, 40 MG PO DAILY for 30 Days, #30 06/23/18 Insulin Degludec (Tresiba Flextouch U-100) 100 Unit/1 Ml Insuln.pen, 10 UNIT SQ QAM 06/23/18 Olopatadine HCl (Pazeo) 2.5 Ml Drops, 2.5 ML OP QAM, BOTTLE 06/23/18 Irbesartan-Hydrochlorothiazide (Irbesartan-Hydrochlorothiazide) 150-12.5 Mg Tab, 1 TAB PO DAILY, TAB 06/23/18 Glimepiride* (Glimepiride*) 4 Mg Tablet, 4 MG PO BID for 30 Days, #60 06/23/18 Discontinued Reported Medications Liraglutide (Victoza 3-Gokul) 0.6 Mg/0.1 Ml Pen.injctr, 0.6 MG SQ DAILY, SYR 06/23/18 Levothyroxine Sodium* (Levothyroxine Sodium*) 75 Mcg Tablet, 75 MCG PO BEFORE BREAKFAST, #30 TAB 06/23/18 Liraglutide (Victoza 2-Gokul) 0.6 Mg/0.1 Ml Pen.injctr, 1.2 MG SQ DAILY, SYR 08/10/15 Metformin Hcl* (Metformin Hcl*) 500 Mg Tablet, 500 MG PO TID, #30 TAB 08/10/15 Discontinued Scripts Magaldrate/Simethicone* (Mag-Al Plus Suspension*) 30 Ml Oral.susp, 30 ML PO Q6H PRN for GASTROINTESTINAL UPSET for 3 Days, ML Prov:HARI AVERY MD 06/24/18 Aspirin Ec (Aspir 81) 81 Mg Tablet.dr, 81 MG PO DAILY, #30 TAB Prov:HARI AVERY MD 06/24/18 Acetaminophen* (Tylenol*) 325 Mg Tablet, 650 MG PO Q6H PRN for .PAIN 1-3 OR TEMP for 1 Day, TAB Prov:HARI AVERY MD 06/24/18 Allergies Allergies: Coded Allergies: No Known Allergy (Unverified , 08/08/18) PMhx/Soc History of Surgery: Yes (REMOVAL OF MYOMA) Anesthesia Reaction: No Hx Neurological Disorder: No Hx Respiratory Disorders: No Hx Cardiac Disorders: Yes (HTN) Hx Psychiatric Problems: No Hx Miscellaneous Medical Probl: No Hx Alcohol Use: No Hx Substance Use: No Hx Tobacco Use: No Smoking Status: Never smoker FmHx Family History: No diabetes Physical Exam Vitals Vital Signs Date Temp Pulse Resp B/P (MAP) Pulse Ox O2 O2 Flow FiO2 Time Delivery Rate 08/08/18 101.7 90 18 183/68 100 Room Air 18:57 (106) 08/08/18 38.7 16:59 08/08/18 101.7 98 18 166/88 100 Room Air 16:47 (114) 08/08/18 101.7 107 18 183/76 100 16:26 (111) Physical Exam Const: No acute distress Head: Atraumatic Eyes: Normal Conjunctiva ENT: Normal External Ears, Nose and Mouth. Neck: Full range of motion. No meningismus. Resp: Clear to auscultation bilaterally Cardio: Regular rate and rhythm, no murmurs Abd: Soft, non tender, non distended. Normal bowel sounds Skin: No petechiae or rashes Back: No midline or flank tenderness Ext: No cyanosis, or edema Neur: Awake and alert Psych: Normal Mood and Affect Result Diagram: 08/08/18 1640 08/08/18 1640 Results 24 hrs Laboratory Tests Test 08/08/18 16:40 08/08/18 16:42 08/08/18 17:00 08/08/18 18:57 White Blood Count 11.3 10^3/ul Red Blood Count 4.75 10^6/ul Hemoglobin 13.7 g/dl Hematocrit 41.6 % Mean Corpuscular 87.6 fl Volume Mean Corpuscular 28.8 pg Hemoglobin Mean Corpuscular 32.9 g/dl Hemoglobin Concen t Red Cell 13.5 % Distribution Width Platelet Count 201 10^3/UL Mean Platelet 10.3 fl Volume Immature 0.500 % Granulocytes % Neutrophils % 88.7 % Lymphocytes % 4.2 % Monocytes % 5.6 % Eosinophils % 0.7 % Basophils % 0.3 % Nucleated Red 0.0 /100WBC Blood Cells % Immature 0.060 10^3/ul Granulocytes # Neutrophils # 10.0 10^3/ul Lymphocytes # 0.5 10^3/ul Monocytes # 0.6 10^3/ul Eosinophils # 0.1 10^3/ul Basophils # 0.0 10^3/ul Nucleated Red 0.0 10^3/ul Blood Cells # Prothrombin Time 12.6 Sec Prothrombin Time 1.0 Ratio INR International 0.93 Normalized Ratio Activated 26.6 Sec Partial Thrombopl ast Time Sodium Level 139 mmol/L Potassium Level 4.1 mmol/L Chloride Level 104 mmol/L Carbon Dioxide 24 mmol/L Level Anion Gap 11 Blood Urea 22 mg/dl Nitrogen Creatinine 0.69 mg/dl Est Glomerular mL/min Filtrat Rate mL/min Glucose Level 277 mg/dl Calcium Level 9.4 mg/dl Total Bilirubin 0.6 mg/dl Direct Bilirubin 0.00 mg/dl Indirect 0.6 mg/dl Bilirubin Aspartate Amino 18 IU/L Transf (AST/SGOT) Alanine 19 IU/L Aminotransferase (ALT/SGPT) Alkaline 90 IU/L Phosphatase Troponin I < 0.012 ng/ml Total Protein 6.9 g/dl Albumin 4.3 g/dl Globulin 2.60 g/dl Albumin/Globulin 1.65 Ratio POC Venous 1.4 mmol/L 1.1 mmol/L Lactate Urine Color YELLOW Urine Clarity CLOUDY Urine pH 6.0 Urine Specific 1.012 [place] Urine Ketones TRACE mg/dL Urine Nitrite NEGATIVE mg/dL Urine Bilirubin NEGATIVE mg/dL Urine NEGATIVE mg/dL Urobilinogen Urine Leukocyte 3+ [place]/ul Esterase Urine Microscopic 27 /HPF RBC Urine Microscopic > 182 /HPF WBC Urine Bacteria FEW /HPF Urine Hemoglobin 2+ mg/dL Urine Glucose 3+ mg/dL Urine Total 1+ mg/dl Protein Current Medications Medications Dose Sig/João Start Time Status Last (Trade) Ordered Route PRN Stop Time Admin Dose Reason Admin 650 mg ONCE STAT 08/08/18 DC 08/08/18 Acetaminophen PO 16:32 16:59 (Tylenol 08/08/18 16:34 Tab) Sodium 1,500 ml BOLUS OVER 2 08/08/18 DC 08/08/18 Chloride HOURS STAT 16:32 16:59 (NS) IV* 08/08/18 16:34 Ceftriaxone 50 ml @ ONCE STAT 08/08/18 DC 08/08/18 Sodium 100 mls/hr IVPB 16:32 16:59 08/08/18 17:01 Ondansetron 4 mg BRIDGE ORDER 08/08/18 HCl (Zofran PRN IV 17:30 08/09/18 Inj) NAUSEA/VOMITI 17:29 NG 650 mg ER BRIDGE 08/08/18 Acetaminophen PRN PO 17:30 08/09/18 (Tylenol .MILD PAIN 17:29 Tab) 1-3 OR TEMP IV Flush 3 ml PER 08/08/18 UNV (NS 3 ml) PROTOCOL IV 19:00 Morphine 2 mg Q4H PRN 08/08/18 UNV Sulfate IV .SEVERE 19:00 (morphine) PAIN 7-10 Piperacillin 100 ml @ Q8 IVPB 08/08/18 UNV Sod/ 200 mls/hr 22:00 Tazobactam Sod 200 mg TID PO 08/08/18 UNV Phenazopyridi 21:00 ne HCl (Pyridium) Discontinue ONCE ONCE 08/08/18 UNV Miscellaneous current oral XX 19:00 sulfonylur... 08/08/18 19:01 Information (* Miscellaneous Pharmacy Order) Insulin 12 units DAILY@199908/08/18 UNV Glargine SC 20:00 (Lantus) Insulin 5 unit WITH MEALS 08/09/18 UNV Aspart SC 08:00 (Novolog Insulin Pen) ONCE ONCE 08/08/18 UNV Miscellaneous HYPOGLYCEMIA XX 19:00 PROTOCOL 08/08/18 19:01 Information w... (* Miscellaneous Pharmacy Order) Insulin NOVOLOG WITH MEALS 08/08/18 UNV Aspart *MILD* BEDTIME SC 21:00 (Novolog ALGORITHM Insulin Pen) Aspirin 81 mg DAILY PO 08/09/18 UNV (Halfprin) 09:00 75 mcg BEFORE 08/09/18 UNV Levothyroxine BREAKFAST 07:00 Sodium PO (Synthroid) Procedures/MDM EKG read by me: Rate/Rhythm: Regular rate and rhythm at a normal rate Intervals: Normal Impression: No evidence of ischemia or arrhythmia Chest x-ray read by radiology. Sepsis Documentation: Patient's infectious symptoms have not stabilized and the patient is at risk of rapid decompensation. The patient will be admitted for careful hydration, antibiotic therapy, and infectious source control. SEVERE SEPSIS CRITERIA: Infectious source: Cystitis End organ damage indicated by: No endorgan damage at this time SEPSIS MANAGEMENT Time of recognition of sepsis: 1640. Time of recognition of severe sepsis: No severe sepsis at this time. Time of recognition of septic shock: No septic shock at this time. 3 HOUR BUNDLE Blood cultures x 2 before broad-spectrum antibiotics: Yes 30 ml/kg NS bolus completed Initial lactate 1.4 Repeat lactate 1.1 SEPTIC SHOCK ASSESSMENT: No lactic acid > 4.0 No persistent hypotension (SBP < 90 or 40 mmHg drop, MAP < 65) despite 30 mL/kg IV fluid bolus VOLUME REASSESSMENT FOR SEPTIC SHOCK: No septic shock at this time PERSISTENT HYPOTENSION TREATMENT: Comfort care no Central line not Required Vasopressor started not required I considered further perfusion assessment with CVP measurement, SCVO2, bedside ultrasound volume assessment, passive leg raise, trial of further fluid bolus. And proceeded with 30 ml/kg fluid bolus of NSS, broad spectrum antibiotics, and admission. The patient will be admitted to the care of Dr. Hammer to a medical surgical bed. CRITICAL CARE Critical care time 35 minutes Emergent fluid management while maintaining close respiratory support. Provision of immediate and broad-spectrum antibiotic therapy. Simultaneous assessment for possible sources in order to direct targeted therapy. Consideration for invasive and chemical support to prevent cardiopulmonary collapse. Critical care time is independent of procedures performed. Departure Diagnosis: Primary Impression: Sepsis Sepsis type: sepsis due to unspecified organism Qualified Codes: A41.9 - Sepsis, unspecified organism Additional Impressions: Fever Fever type: unspecified Qualified Codes: R50.9 - Fever, unspecified Cystitis Condition: ELLIE Zaragoza MD Aug 08, 2018 19:03
[2018-08-08] MEDS ORDERED: GLUCAGON 1 MG INJ IM PRN (19:30)
[2018-08-08] MEDS ORDERED: GLUCOSE GEL 15 GRAM TUBE BUCCAL PRN (19:30)
[2018-08-08] MEDS ORDERED: DEXTROSE 50% 50 ML SYRINGE IV PRN ×2 (19:30)
[2018-08-08] MEDS ORDERED: GLUCOSE GEL 15 GRAM TUBE PO PRN ×2 (19:30)
[2018-08-08 20:00] VITALS: BP 145/64; PULSE 90; RESP 18
[2018-08-08 21:00] VITALS: Ht 154.9 cm; Wt 77.3 kg
[2018-08-08] MEDS: PHENAZOPYRIDINE 200 MG TAB PO SCH (22:01)
[2018-08-08] MEDS: PIPER-TAZO 3.375 GM IV (PMX) 100 ML IVPB SCH (22:01)
[2018-08-08] MEDS: INSULIN GLARGINE [LANTus] (100 UNITS/ML) SYG SC SCH (22:02)
[2018-08-08] MEDS: INSULIN ASPART [NOVOLOG] 3 ML PEN SC SCH (22:02)
[2018-08-09 02:00] VITALS: BP 140/62; PULSE 87; RESP 18
[2018-08-09] MEDS: PIPER-TAZO 3.375 GM IV (PMX) 100 ML IVPB SCH ×3 (05:42→21:14)
[2018-08-09] MEDS: LEVOTHYROXINE 75 MCG TAB PO SCH (07:14)
[2018-08-09] MEDS: INSULIN ASPART [NOVOLOG] 3 ML PEN SC SCH ×7 (08:20→21:09)
[2018-08-09] MEDS: ASPIRIN (EC) 81 MG TAB PO SCH (08:22)
[2018-08-09] MEDS: PHENAZOPYRIDINE 200 MG TAB PO SCH ×3 (08:22→21:04)
[2018-08-09 08:23] VITALS: BP 147/66; PULSE 85; RESP 18
--- NOTE | 2018-08-09 12:33 | PN ---
Date/Time of Note Date/Time of Note DATE: 08/09/18 TIME: 12:33 Assessment/Plan VTE Prophylaxis SCD applied (from Nsg): Yes Pharmacological prophylaxis: NA/contraindicated Pharm contraindication: low risk/ambulating Lines/Catheters IV Catheter Type (from Nrsg): Saline Lock Urinary Cath still in place: No Assessment/Plan Assessment/Plan 1. Sepsis secondary to UTI- improving - UA results noted - Urine cultures showing no growth - will d/c tomorrow on PO antibiotics if no further discomfort, fevers, or issues - renal US results noted 2. DM - A1c noted - continue insulin and hold pO medications - ISS and accuchecks 3. hypothyroidism - continue levothyroxine 4. Disposition - if remains afebrile, will d/c tomorrow in am on PO antibiotics Result Diagram: 08/09/18 0530 08/09/18 0530 Results 24hrs Laboratory Tests Test 08/08/18 16:40 08/08/18 16:42 08/08/18 17:00 08/08/18 18:57 White Blood Count 11.3 #H Red Blood Count 4.75 Hemoglobin 13.7 Hematocrit 41.6 Mean Corpuscular 87.6 Volume Mean Corpuscular 28.8 L Hemoglobin Mean Corpuscular 32.9 Hemoglobin Concent Red Cell 13.5 Distribution Width Platelet Count 201 Mean Platelet Volume 10.3 Immature 0.500 H Granulocytes % Neutrophils % 88.7 H Lymphocytes % 4.2 L Monocytes % 5.6 Eosinophils % 0.7 Basophils % 0.3 Nucleated Red Blood 0.0 Cells % Immature 0.060 H Granulocytes # Neutrophils # 10.0 H Lymphocytes # 0.5 L Monocytes # 0.6 Eosinophils # 0.1 Basophils # 0.0 Nucleated Red Blood 0.0 Cells # Prothrombin Time 12.6 Prothrombin Time 1.0 Ratio INR International 0.93 Normalized Ratio Activated 26.6 Partial Thromboplast Time Sodium Level 139 Potassium Level 4.1 Chloride Level 104 Carbon Dioxide Level 24 Anion Gap 11 Blood Urea Nitrogen 22 H Creatinine 0.69 Est Glomerular Filtrat Rate mL/min Glucose Level 277 H Calcium Level 9.4 Total Bilirubin 0.6 Direct Bilirubin 0.00 Indirect Bilirubin 0.6 Aspartate Amino 18 Transf (AST/SGOT) Alanine 19 Aminotransferase (AL T/SGPT) Alkaline Phosphatase 90 Troponin I < 0.012 Total Protein 6.9 Albumin 4.3 Globulin 2.60 Albumin/Globulin 1.65 Ratio POC Venous Lactate 1.4 1.1 Urine Color YELLOW Urine Clarity CLOUDY A Urine pH 6.0 Urine Specific 1.012 Ray Urine Ketones TRACE A Urine Nitrite NEGATIVE Urine Bilirubin NEGATIVE Urine Urobilinogen NEGATIVE Urine Leukocyte 3+ H Esterase Urine Microscopic 27 H RBC Urine Microscopic > 182 H WBC Urine Bacteria FEW A Urine Hemoglobin 2+ H Urine Glucose 3+ H Urine Total Protein 1+ H Test 08/08/18 20:56 08/09/18 05:30 08/09/18 07:52 Lactic Acid Level 1.2 White Blood Count 9.5 Red Blood Count 4.38 Hemoglobin 13.0 Hematocrit 38.2 Mean Corpuscular 87.2 Volume Mean Corpuscular 29.7 Hemoglobin Mean Corpuscular 34.0 Hemoglobin Concent Red Cell 13.8 Distribution Width Platelet Count 207 Mean Platelet Volume 10.5 H Immature 0.400 Granulocytes % Neutrophils % 76.7 Lymphocytes % 14.0 L Monocytes % 8.0 Eosinophils % 0.5 Basophils % 0.4 Nucleated Red Blood 0.0 Cells % Immature 0.040 H Granulocytes # Neutrophils # 7.2 Lymphocytes # 1.3 Monocytes # 0.8 Eosinophils # 0.1 Basophils # 0.0 Nucleated Red Blood 0.0 Cells # Sodium Level 140 Potassium Level 3.6 Chloride Level 108 Carbon Dioxide Level 25 Anion Gap 7 Blood Urea Nitrogen 14 Creatinine 0.54 Est Glomerular Filtrat Rate mL/min Glucose Level 164 # Hemoglobin A1c 7.7 H Calcium Level 8.9 Total Bilirubin 0.8 Direct Bilirubin 0.00 Indirect Bilirubin 0.8 Aspartate Amino 17 Transf (AST/SGOT) Alanine 22 Aminotransferase (AL T/SGPT) Alkaline Phosphatase 78 Total Protein 6.0 L Albumin 3.5 Globulin 2.50 Albumin/Globulin 1.40 Ratio Bedside Glucose 159 Subjective 24 Hr Interval Summary Free Text/Dictation Patient states shes feeling much better and denies any urinary discomfort. no acute overnight events. Exam/Review of Systems Exam Vitals Vital Signs Date Temp Pulse Resp B/P (MAP) Pulse Ox O2 O2 Flow FiO2 Time Delivery Rate 08/09/18 98.8 85 18 147/66 92 08:23 (93) 08/08/18 Room Air 18:57 Intake and Output 08/08/18 08/08/18 08/09/18 1515:00 23:00 07:00 IntakeIntake Total 100 ml 100 ml BalanceBalance 100 ml 100 ml Exam General: no acute distress. awake and answering questions appropriately Chest: Nontender Lungs: Clear to auscultation bilaterally no crackles rales or wheezing Heart: Normal S1-S2, Regular rhythm and rate. No murmur, S3, or S4 Abdomen: Soft , nontender, nondistended , bowel sounds are present. No guarding no rebound tenderness , No masses or organomegaly. No costovertebral temporal angle mass Extremities: Normal to inspection, no edema no cyanosis Skin: no rashes or lesions Results Results 24hrs Laboratory Tests Test 08/08/18 16:40 08/08/18 16:42 08/08/18 17:00 08/08/18 18:57 White Blood Count 11.3 #H Red Blood Count 4.75 Hemoglobin 13.7 Hematocrit 41.6 Mean Corpuscular 87.6 Volume Mean Corpuscular 28.8 L Hemoglobin Mean Corpuscular 32.9 Hemoglobin Concent Red Cell 13.5 Distribution Width Platelet Count 201 Mean Platelet Volume 10.3 Immature 0.500 H Granulocytes % Neutrophils % 88.7 H Lymphocytes % 4.2 L Monocytes % 5.6 Eosinophils % 0.7 Basophils % 0.3 Nucleated Red Blood 0.0 Cells % Immature 0.060 H Granulocytes # Neutrophils # 10.0 H Lymphocytes # 0.5 L Monocytes # 0.6 Eosinophils # 0.1 Basophils # 0.0 Nucleated Red Blood 0.0 Cells # Prothrombin Time 12.6 Prothrombin Time 1.0 Ratio INR International 0.93 Normalized Ratio Activated 26.6 Partial Thromboplast Time Sodium Level 139 Potassium Level 4.1 Chloride Level 104 Carbon Dioxide Level 24 Anion Gap 11 Blood Urea Nitrogen 22 H Creatinine 0.69 Est Glomerular Filtrat Rate mL/min Glucose Level 277 H Calcium Level 9.4 Total Bilirubin 0.6 Direct Bilirubin 0.00 Indirect Bilirubin 0.6 Aspartate Amino 18 Transf (AST/SGOT) Alanine 19 Aminotransferase (AL T/SGPT) Alkaline Phosphatase 90 Troponin I < 0.012 Total Protein 6.9 Albumin 4.3 Globulin 2.60 Albumin/Globulin 1.65 Ratio POC Venous Lactate 1.4 1.1 Urine Color YELLOW Urine Clarity CLOUDY A Urine pH 6.0 Urine Specific 1.012 Ray Urine Ketones TRACE A Urine Nitrite NEGATIVE Urine Bilirubin NEGATIVE Urine Urobilinogen NEGATIVE Urine Leukocyte 3+ H Esterase Urine Microscopic 27 H RBC Urine Microscopic > 182 H WBC Urine Bacteria FEW A Urine Hemoglobin 2+ H Urine Glucose 3+ H Urine Total Protein 1+ H Test 08/08/18 20:56 08/09/18 05:30 08/09/18 07:52 Lactic Acid Level 1.2 White Blood Count 9.5 Red Blood Count 4.38 Hemoglobin 13.0 Hematocrit 38.2 Mean Corpuscular 87.2 Volume Mean Corpuscular 29.7 Hemoglobin Mean Corpuscular 34.0 Hemoglobin Concent Red Cell 13.8 Distribution Width Platelet Count 207 Mean Platelet Volume 10.5 H Immature 0.400 Granulocytes % Neutrophils % 76.7 Lymphocytes % 14.0 L Monocytes % 8.0 Eosinophils % 0.5 Basophils % 0.4 Nucleated Red Blood 0.0 Cells % Immature 0.040 H Granulocytes # Neutrophils # 7.2 Lymphocytes # 1.3 Monocytes # 0.8 Eosinophils # 0.1 Basophils # 0.0 Nucleated Red Blood 0.0 Cells # Sodium Level 140 Potassium Level 3.6 Chloride Level 108 Carbon Dioxide Level 25 Anion Gap 7 Blood Urea Nitrogen 14 Creatinine 0.54 Est Glomerular Filtrat Rate mL/min Glucose Level 164 # Hemoglobin A1c 7.7 H Calcium Level 8.9 Total Bilirubin 0.8 Direct Bilirubin 0.00 Indirect Bilirubin 0.8 Aspartate Amino 17 Transf (AST/SGOT) Alanine 22 Aminotransferase (AL T/SGPT) Alkaline Phosphatase 78 Total Protein 6.0 L Albumin 3.5 Globulin 2.50 Albumin/Globulin 1.40 Ratio Bedside Glucose 159 Medications Medication Current Medications IV Flush (NS 3 ml) 3 ml PER PROTOCOL IV ; Start 08/08/18 at 19:00 Morphine Sulfate (morphine) 2 mg Q4H PRN IV .SEVERE PAIN 7-10; Start 08/08/18 at 19:00 Piperacillin Sod/ Tazobactam Sod 100 ml @ 200 mls/hr Q8 IVPB Last administered on 08/09/18at 05:42; Admin Dose 200 MLS/HR; Start 08/08/18 at 23:00 Phenazopyridine HCl (Pyridium) 200 mg TID PO Last administered on 08/09/18at 08:22; Admin Dose 200 MG; Start 08/08/18 at 23:00 Insulin Glargine (Lantus) 12 units DAILY@2000 SC Last administered on 08/08/18at 22:02; Admin Dose 12 UNITS; Start 08/08/18 at 23:00 Insulin Aspart (Novolog Insulin Pen) 5 unit WITH MEALS SC Last administered on 08/09/18 08:20; Admin Dose 5 UNIT; Start 08/09/18 at 07:35 Insulin Aspart (Novolog Insulin Pen) NOVOLOG *MILD* ALGORITHM WITH MEALS BEDTIME SC Last administered on 08/09/18at 08:21; Admin Dose 1 UNIT; Start 08/08/18 at 23:00 Aspirin (Halfprin) 81 mg DAILY PO Last administered on 08/09/18at 08:22; Admin Dose 81 MG; Start 08/09/18 at 09:00 Levothyroxine Sodium (Synthroid) 75 mcg BEFORE BREAKFAST PO Last administered on 08/09/18at 07:14; Admin Dose 75 MCG; Start 08/09/18 at 07:00 Miscellaneous Information 1 ea NOTE XX ; Start 08/08/18 at 19:30 Glucose (Glutose) 15 gm Q15M PRN PO DECREASED GLUCOSE; Start 08/08/18 at 19:30 Glucose (Glutose) 22.5 gm Q15M PRN PO DECREASED GLUCOSE; Start 08/08/18 at 19:30 Dextrose (D50w Syringe) 25 ml Q15M PRN IV DECREASED GLUCOSE; Start 08/08/18 at 19:30 Dextrose (D50w Syringe) 50 ml Q15M PRN IV DECREASED GLUCOSE; Start 08/08/18 at 19:30 Glucagon (Glucagen) 1 mg Q15M PRN IM DECREASED GLUCOSE; Start 08/08/18 at 19:30 Glucose (Glutose) 15 gm Q15M PRN BUCCAL DECREASED GLUCOSE; Start 08/08/18 at 19:30 DAVIAN KAT MD August 09, 2018 12:33
[2018-08-09 15:13] VITALS: BP 146/67; PULSE 84; RESP 20
[2018-08-09 20:00] VITALS: BP 166/75; PULSE 86; RESP 19
[2018-08-09 21:00] VITALS: BP 155/68; PULSE 83
[2018-08-09] MEDS ORDERED: hydrALAzine 20 MG INJ IV PRN (21:00)
[2018-08-09] MEDS: INSULIN GLARGINE [LANTus] (100 UNITS/ML) SYG SC SCH (21:07)
[2018-08-09] MEDS ORDERED: INSULIN ASPART [NOVOLOG] 3 ML PEN SC ONE (21:30)
[2018-08-10 02:00] VITALS: BP 136/60; PULSE 81; RESP 18
[2018-08-10] MEDS: PIPER-TAZO 3.375 GM IV (PMX) 100 ML IVPB SCH ×2 (05:37→14:08)
[2018-08-10] MEDS: LEVOTHYROXINE 75 MCG TAB PO SCH (07:11)
[2018-08-10 08:00] VITALS: BP 141/64; PULSE 76; RESP 18
[2018-08-10] MEDS: INSULIN ASPART [NOVOLOG] 3 ML PEN SC SCH ×4 (08:09→11:56)
[2018-08-10] MEDS: PHENAZOPYRIDINE 200 MG TAB PO SCH ×2 (08:10→12:00)
[2018-08-10] MEDS: ASPIRIN (EC) 81 MG TAB PO SCH (08:10)
--- NOTE | 2018-08-10 12:16 | PN ---
Date/Time of Note Date/Time of Note DATE: 08/10/18 TIME: 12:13 Assessment/Plan VTE Prophylaxis Risk score (from [facility] [place])>0 risk: 5 SCD applied (from Ns): Yes Pharmacological prophylaxis: NA/contraindicated Pharm contraindication: low risk/ambulating Lines/Catheters IV Catheter Type (from [facility]): Saline Lock Urinary Cath still in place: No Assessment/Plan Assessment/Plan 1. Sepsis secondary to UTI- resolved - UA results noted - Urine cultures showing mixed positive organisms, likely contaminant. will still treat as outpatient with short course of antibiotics - renal US results noted 2. DM - A1c noted - continue insulin and hold PO medications - ISS and accuchecks 3. hypothyroidism - continue levothyroxine 4. Disposition - Medically stable for discharge home Result Diagram: 08/10/1844908/10/18449 Results 24hrs Laboratory Tests Test 08/09/18 12:27 08/09/18 17:36 08/09/18 21:02 08/10/18 00:18 Bedside Glucose 170 233 H 314 H 138 Test 08/10/18 02:55 08/10/18 04:50 08/10/18 07:57 08/10/18 11:49 Bedside Glucose 130 191 281 H White Blood Count 6.0 # Red Blood Count 4.33 Hemoglobin 12.6 Hematocrit 38.4 Mean Corpuscular Volume 88.7 Mean Corpuscular 29.1 Hemoglobin Mean Corpuscular 32.8 Hemoglobin Concent Red Cell Distribution 13.8 Width Platelet Count 219 Mean Platelet Volume 10.7 H Immature Granulocytes % 0.300 Neutrophils % 62.5 Lymphocytes % 25.2 Monocytes % 9.7 Eosinophils % 1.8 Basophils % 0.5 Nucleated Red Blood 0.0 Cells % Immature Granulocytes # 0.020 Neutrophils # 3.7 Lymphocytes # 1.5 Monocytes # 0.6 Eosinophils # 0.1 Basophils # 0.0 Nucleated Red Blood 0.0 Cells # Sodium Level 142 Potassium Level 4.3 Chloride Level 110 Carbon Dioxide Level 25 Anion Gap 7 Blood Urea Nitrogen 15 Creatinine 0.59 Glucose Level 173 Calcium Level 9.0 Phosphorus Level 3.3 Magnesium Level 2.1 Albumin 3.5 Subjective 24 Hr Interval Summary Free Text/Dictation Patient is doing well and in no acute distress. Says shes feeling significantly better but concerned about her elevated sugars. Exam/Review of Systems Exam Vitals Vital Signs Date Temp Pulse Resp B/P (MAP) Pulse Ox O2 O2 Flow FiO2 Time Delivery Rate 08/10/18 97.9 76 18 141/64 95 Room Air 08:00 (89) Intake and Output 08/09/18 08/09/18 08/10/18 1515:00 23:00 07:00 IntakeIntake Total 480 ml 880 ml 240 ml BalanceBalance 480 ml 880 ml 240 ml Exam General: no acute distress. awake and answering questions appropriately Chest: Nontender Lungs: Clear to auscultation bilaterally no crackles rales or wheezing Heart: Normal S1-S2, Regular rhythm and rate. No murmur, S3, or S4 Abdomen: Soft , nontender, nondistended , bowel sounds are present. No guarding no rebound tenderness Extremities: Normal to inspection, no edema no cyanosis Skin: no rashes or lesions Results Results 24hrs Laboratory Tests Test 08/09/18 12:27 08/09/18 17:36 08/09/18 21:02 08/10/18 00:18 Bedside Glucose 170 233 H 314 H 138 Test 08/10/18 02:55 08/10/18 04:50 08/10/18 07:57 08/10/18 11:49 Bedside Glucose 130 191 281 H White Blood Count 6.0 # Red Blood Count 4.33 Hemoglobin 12.6 Hematocrit 38.4 Mean Corpuscular Volume 88.7 Mean Corpuscular 29.1 Hemoglobin Mean Corpuscular 32.8 Hemoglobin Concent Red Cell Distribution 13.8 Width Platelet Count 219 Mean Platelet Volume 10.7 H Immature Granulocytes % 0.300 Neutrophils % 62.5 Lymphocytes % 25.2 Monocytes % 9.7 Eosinophils % 1.8 Basophils % 0.5 Nucleated Red Blood 0.0 Cells % Immature Granulocytes # 0.020 Neutrophils # 3.7 Lymphocytes # 1.5 Monocytes # 0.6 Eosinophils # 0.1 Basophils # 0.0 Nucleated Red Blood 0.0 Cells # Sodium Level 142 Potassium Level 4.3 Chloride Level 110 Carbon Dioxide Level 25 Anion Gap 7 Blood Urea Nitrogen 15 Creatinine 0.59 Glucose Level 173 Calcium Level 9.0 Phosphorus Level 3.3 Magnesium Level 2.1 Albumin 3.5 Medications Medication Current Medications IV Flush (NS 3 ml) 3 ml PER PROTOCOL IV ; Start 08/08/18 at 19:00 Morphine Sulfate (morphine) 2 mg Q4H PRN IV .SEVERE PAIN 7-10; Start 08/08/18 at 19:00 Piperacillin Sod/ Tazobactam Sod 100 ml @ 200 mls/hr Q8 IVPB Last administered on 08/10/18at 05:37; Admin Dose 200 MLS/HR; Start 08/08/18 at 23:00 Phenazopyridine HCl (Pyridium) 200 mg TID PO Last administered on 08/10/18at 12:00; Admin Dose 200 MG; Start 08/08/18 at 23:00 Insulin Glargine (Lantus) 12 units DAILY@2000 SC Last administered on 08/09/18at 21:07; Admin Dose 12 UNITS; Start 08/08/18 at 23:00 Insulin Aspart (Novolog Insulin Pen) 5 unit WITH MEALS SC Last administered on 08/10/18at 11:56; Admin Dose 5 UNIT; Start 08/09/18 at 07:35 Insulin Aspart (Novolog Insulin Pen) NOVOLOG *MILD* ALGORITHM WITH MEALS BEDTIME SC Last administered on 08/10/18 11:56; Admin Dose 4 UNIT; Start 08/08/18 at 23:00 Aspirin (Halfprin) 81 mg DAILY PO Last administered on 08/10/18at 08:10; Admin Dose 81 MG; Start 08/09/18 at 09:00 Levothyroxine Sodium (Synthroid) 75 mcg BEFORE BREAKFAST PO Last administered on 08/10/18at 07:11; Admin Dose 75 MCG; Start 08/09/18 at 07:00 Miscellaneous Information 1 ea NOTE XX ; Start 08/08/18 at 19:30 Glucose (Glutose) 15 gm Q15M PRN PO DECREASED GLUCOSE; Start 08/08/18 at 19:30 Glucose (Glutose) 22.5 gm Q15M PRN PO DECREASED GLUCOSE; Start 08/08/18 at 19:30 Dextrose (D50w Syringe) 25 ml Q15M PRN IV DECREASED GLUCOSE; Start 08/08/18 at 19:30 Dextrose (D50w Syringe) 50 ml Q15M PRN IV DECREASED GLUCOSE; Start 08/08/18 at 19:30 Glucagon (Glucagen) 1 mg Q15M PRN IM DECREASED GLUCOSE; Start 08/08/18 at 19:30 Glucose (Glutose) 15 gm Q15M PRN BUCCAL DECREASED GLUCOSE; Start 08/08/18 at 19:30 Hydralazine HCl (Apresoline) 10 mg Q6H PRN IV systolic >170; Start 08/09/18 at 21:00 DAVIAN KAT MD August 10, 2018 12:16
[2018-08-10] MEDS ORDERED: CEPH500C PO (12:18)
--- NOTE | 2018-08-10 12:20 | PDOCDIS ---
Discharge Instructions DIAGNOSIS Discharge Diagnosis 1. Sepsis secondary to UTI- resolved 2. Diabetes Mellitus 3. Urinary tract infection 4. hypothyroidism CONDITION [id number] Patient Condition: [id number] Stable HOME CARE INSTRUCTIONS: [id number] Diet Instructions: [id number] Low Fat /Cholesterol [id number] Special Diet: [id number] low carb, low sugar diet ACTIVITY: [id number] Activity Restrictions: [id number] No Restrictions FOLLOW UP/APPOINTMENTS Follow-up Plan 1. Follow up with your primary care physician in 1-2 weeks 2. Take Keflex 500mg twice a day with next dose tonight with dinner. Complete prescription 3. Continue all home medications for diabetes management 4. If experiencing any concerning symptoms, please go to your nearest emergency department DAVIAN KAT MD August 10, 2018 12:20
[2018-08-10 14:20] VITALS: BP 131/63; PULSE 83; RESP 18
--- NOTE | 2018-08-10 17:10 | DS ---
Date/Time of Note Date/Time of Note DATE: 08/10/18 TIME: 17:07 Discharge Summary Admission/Discharge Info Admit Date/Time Aug 08, 2018 at 17:18 Discharge Date/Time August 10, 2018 at 16:31 Discharge Diagnosis 1. Sepsis secondary to UTI- resolved 2. Diabetes Mellitus 3. Urinary tract infection 4. hypothyroidism Patient Condition: Stable Hx of Present Illness This is a 73-year-old female with a history of diabetes, recurrent UTIs who presents complaining of "cystitis " Patient seems to have suffered from frequent recurrent UTIs over the last couple years. She says in her [facility] [place] she underwent some sort of surgical procedure for a kidney infection she says. Over the past few days she has developed worsening bladder pain with urinary frequency and urgency and incomplete emptying. Severe pain. She denies any systemic symptoms from this she. She presents for evaluation of which she calls cystitis Hospital Course Patient was admitted for treatment of UTI symptoms and urine cultures were sent. Patient was started on IV antibiotics with improvement in symptoms. Urine cultures resulted as mixed gram positive organisms and she was transitioned to PO antibiotics. Patients sugars were monitored during hospital stay and instructed to continue her home medications upon discharge. Patients presenting symptoms improved significantly and on day of discharge, vitals and physical exam were stable. She was discharged home in good condition. Home Meds Active Scripts Cephalexin* (Cephalexin*) 500 Mg Capsule, 500 MG PO BID for 4 Days, #8 CAP Prov:DAVIAN KAT MD 08/10/18 Reported Medications Levothyroxine Sodium* (Levothyroxine Sodium*) 75 Mcg Tablet, 75 MCG PO BEFORE BREAKFAST, #30 TAB 08/08/18 Liraglutide (Victoza 3-Gokul) 0.6 Mg/0.1 Ml Pen.injctr, 1.8 MG SQ DAILY, SYR 08/08/18 Aspirin* (Aspirin* EC) 81 Mg Tablet.dr, 81 MG PO NEEDED, TAB 08/08/18 Pantoprazole* (Pantoprazole*) 40 Mg Tablet.dr, 40 MG PO DAILY for 30 Days, #30 06/23/18 Insulin Degludec (Tresiba Flextouch U-100) 100 Unit/1 Ml Insuln.pen, 10 UNIT SQ QAM 06/23/18 Olopatadine HCl (Pazeo) 2.5 Ml Drops, 2.5 ML OP QAM, BOTTLE 06/23/18 Irbesartan-Hydrochlorothiazide (Irbesartan-Hydrochlorothiazide) 150-12.5 Mg Tab, 1 TAB PO DAILY, TAB 06/23/18 Glimepiride* (Glimepiride*) 4 Mg Tablet, 4 MG PO BID for 30 Days, #60 06/23/18 Discontinued Reported Medications Levofloxacin* (Levofloxacin*) 500 Mg Tablet, 500 MG PO DAILY, TAB FOR 5 DAYS, START DATE 08/08/18 08/08/18 Liraglutide (Victoza 3-Gokul) 0.6 Mg/0.1 Ml Pen.injctr, 0.6 MG SQ DAILY, SYR 06/23/18 Levothyroxine Sodium* (Levothyroxine Sodium*) 75 Mcg Tablet, 75 MCG PO BEFORE BREAKFAST, #30 TAB 06/23/18 Liraglutide (Victoza 2-Gokul) 0.6 Mg/0.1 Ml Pen.injctr, 1.2 MG SQ DAILY, SYR 08/10/15 Metformin Hcl* (Metformin Hcl*) 500 Mg Tablet, 500 MG PO TID, #30 TAB 08/10/15 Discontinued Scripts Magaldrate/Simethicone* (Mag-Al Plus Suspension*) 30 Ml Oral.susp, 30 ML PO Q6H PRN for GASTROINTESTINAL UPSET for 3 Days, ML Prov:HARI AVERY MD 06/24/18 Aspirin Ec (Aspir 81) 81 Mg Tablet.dr, 81 MG PO DAILY, #30 TAB Prov:HARI AVERY MD 06/24/18 Acetaminophen* (Tylenol*) 325 Mg Tablet, 650 MG PO Q6H PRN for .PAIN 1-3 OR TEMP for 1 Day, TAB Prov:HARI AVERY MD 06/24/18 Follow-up Plan 1. Follow up with your primary care physician in 1-2 weeks 2. Take Keflex 500mg twice a day with next dose tonight with dinner. Complete prescription 3. Continue all home medications for diabetes management 4. If experiencing any concerning symptoms, please go to your nearest emergency department Primary Care Provider Not On Staff Doctor Time spent on discharge: > 30 minutes Pending Labs Laboratory Tests Test 08/09/18 17:36 08/09/18 21:02 08/10/18 00:18 08/10/18 02:55 Bedside 233 314 138 130 Glucose mg/dL (70-220) mg/dL (70-220) mg/dL (70-220) mg/dL (70-220) Test 08/10/18 04:50 08/10/18 07:57 08/10/18 11:49 White Blood 6.0 Count 10^3/ul (4.8-10 .8) Red Blood 4.33 Count 10^6/ul (4.20-5 .40) Hemoglobin 12.6 g/dl (12.0-16.0 ) Hematocrit 38.4 % (37.0-47.0) Mean 88.7 Corpuscular fl (82.0-101.0) Volume Mean 29.1 Corpuscular pg (29.0-33.0) Hemoglobin Mean 32.8 Corpuscular g/dl (32.0-37.0 Hemoglobin Conc ) ent Red Cell 13.8 Distribution % (11.5-14.5) Width Platelet Count 219 10^3/UL (140-41 5) Mean Platelet 10.7 Volume fl (7.4-10.4) Immature 0.300 Granulocytes % % (0.001-0.429) Neutrophils % 62.5 % (39.0-77.0) Lymphocytes % 25.2 % (15.0-51.0) Monocytes % 9.7 % (0.0-11.0) Eosinophils % 1.8 % (0.0-7.0) Basophils % 0.5 % (0.0-2.0) Nucleated Red 0.0 Blood Cells % /100WBC (0.0-0. 0) Immature 0.020 Granulocytes # 10^3/ul (0.0-0. 031) Neutrophils # 3.7 10^3/ul (1.6-7. 5) Lymphocytes # 1.5 10^3/ul (0.8-2. 9) Monocytes # 0.6 10^3/ul (0.3-0. 9) Eosinophils # 0.1 10^3/ul (0.0-0. 5) Basophils # 0.0 10^3/ul (0.0-0. 1) Nucleated Red 0.0 Blood Cells # 10^3/ul (0.0-0. 0) Sodium Level 142 mmol/L (135-144 ) Potassium 4.3 Level mmol/L (3.5-5.1 ) Chloride Level 110 mmol/L (97-110) Carbon Dioxide 25 Level mmol/L (21-31) Anion Gap 7 (5-13) Blood Urea 15 mg/dl (7-20) Nitrogen Creatinine 0.59 mg/dl (0.44-1.0 0) Glucose Level 173 mg/dl (70-220) Calcium Level 9.0 mg/dl (8.4-10.2 ) Phosphorus 3.3 Level mg/dl (2.5-4.9) Magnesium 2.1 Level mg/dl (1.7-2.5) Albumin 3.5 g/dl (3.3-4.9) Bedside 191 281 Glucose mg/dL (70-220) mg/dL (70-220) DAVIAN KAT MD August 10, 2018 17:09
[2018-08-10] MEDS ORDERED: INSULIN GLARGINE [LANTus] (100 UNITS/ML) SYG SC SCH (20:00)
== END 2018-08-10 16:31 | disposition home or self-care (01) | DRG 872 ==
LOC: E/R 16:04 → PP2 17:18 → SUATTDRO 17:28
PROVIDERS: ADMIT Internal Medicine; ATTEND Internal Medicine
DX: A41.9 Sepsis, unspecified organism (principal); N39.0 Urinary tract infection, site not specified; E11.9 Type 2 diabetes mellitus without complications; E03.9 Hypothyroidism, unspecified; I10 Essential (primary) hypertension; Z79.4 Long term (current) use of insulin; Z87.440 Personal history of urinary (tract) infections; Z79.82 Long term (current) use of aspirin
CPT/HCPCS: 36415; 71045; 76775; 80053; 80069; 81001; 82962; 83036; 83605; 83735; 84484; 85025; 85610; 85730; 87086; 93005; 96374; J0696; J1815; J2543; J7030